=== PATIENT | male | born 1985 | race American Indian/Alaskan Native ===

== ENCOUNTER 2019-02-28 22:54 | Emergency (ER) | payer SELFPAY ==
[2019-02-28 23:11] VITALS: BP 144/86
[2019-03-01] MEDS ORDERED: diphenhydrAMINE 25 MG CAP PO ONE (00:54)
--- NOTE | 2019-03-01 01:12 | Event Note ---
Date of service: 03/01/19 Face to Face: This is a 34-year-old gentleman, HIV positive, on antiviral therapy, prezista and genvoya, presenting with burning pruritic rash, on the right posterior tricep, vesicular in nature, also in right axilla, punctate lesion on right abdominal wall, likely zoster. Patient denies systemic symptoms. Patient denies additional complaints. Physician captain's assistant to evaluate patient's medications, and recommend either acyclovir or valacyclovir, depending on medication interactions. Counseled patient on need to follow-up, this condition does not appear to be dangerous or life-threatening. Would discontinue triamcinolone at this time. We would do warm compresses as needed for pain. Vital Signs 02/28/19 23:04 Temperature 97.7 F Pulse Rate 84 Respiratory 18 Rate Blood Pressure 144/86 O2 Sat by Pulse 100 Oximetry
--- NOTE | 2019-03-01 01:20 | Emergency Department Report ---
- General Chief complaint: Skin Rash Stated complaint: BODY RASH Time Seen by Provider: 03/01/19 00:35 Source: patient Mode of arrival: Ambulatory Limitations: No Limitations - History of Present Illness Initial comments: Patient is a 34-year-old male with a past medical history of HIV and hepatitis C on antivirals who presents the emergency room with complaints of a rash that be dayna 2 days ago. He describes the rash as itching and burning. Patient denies any new medications. He denies any new soaps, detergents, lotions, anything new that he can think of. He states that he went to the [facility] yesterday and received triamcinolone ointment but it has not been relieving his symptoms. pt denies any other symptoms. he denies nausea, vomiting, fever, chills, ANTHONY, or any other symptoms. pt takes bactrim, prezista, and genvoya. - Related Data Previous Rx's Medication Instructions Recorded Last Taken Type Acyclovir [Zovirax Tab] 800 mg PO 5XD 7 Days #35 tablet 03/01/19 Unknown Rx Allergies Allergy/AdvReac Type Severity Reaction Status Date / Time No Known Allergies Allergy Verified 03/01/19 01:25 Abscess Boil HPI - HPI Chief Complaint: Skin Rash Stated Complaint: BODY RASH Time Seen by Provider: 03/01/19 00:35 Home Medications: Previous Rx's Medication Instructions Recorded Last Taken Type Acyclovir [Zovirax Tab] 800 mg PO 5XD 7 Days #35 tablet 03/01/19 Unknown Rx Allergies/Adverse Reactions: Allergies Allergy/AdvReac Type Severity Reaction Status Date / Time No Known Allergies Allergy Verified 03/01/19 01:25 ED Review of Systems ROS: Stated complaint: BODY RASH Other details as noted in HPI Comment: All other systems reviewed and negative ED Past Medical Hx - Past Medical History Previous Medical History?: Yes Hx Hypertension: Yes Hx HIV: Yes Additional medical history: Hep B - Surgical History Past Surgical History?: No - Social History Smoking Status: Current Every Day Smoker Substance Use Type: Alcohol, Marijuana - Medications Home Medications: Home Medications Medication Instructions Recorded Confirmed Last Taken Type Acyclovir [Zovirax Tab] 800 mg PO 5XD 7 Days #35 tablet 03/01/19 Unknown Rx ED Physical Exam - General Limitations: No Limitations General appearance: alert, in no apparent distress - Head Head exam: Present: atraumatic, normocephalic - Eye Eye exam: Present: normal appearance - ENT ENT exam: Present: mucous membranes moist - Neurological Exam Neurological exam: Present: alert, oriented X3 - Psychiatric Psychiatric exam: Present: normal affect, normal mood - Skin Skin exam: Present: warm, dry, other (grouped vesicles in a dermatomal distrubution on the left upper arm, small punctuate lesion to the left upper back) ED Course Vital Signs 02/28/19 23:04 Temperature 97.7 F Pulse Rate 84 Respiratory 18 Rate Blood Pressure 144/86 O2 Sat by Pulse 100 Oximetry ED Medical Decision Making - Medical Decision Making Patient is a 34-year-old male with a past medical history of HIV and hepatitis C on antivirals who presents the emergency room with complaints of a rash that began 2 days ago. He describes the rash as itching and burning. Patient denies any new medications. He denies any new soaps, detergents, lotions, anything new that he can think of. He states that [facility] and received triamcinolone ointment but it has not been relieving his symptoms. pt denies any other symptoms. he denies nausea, vomiting, fever, chills, ANTHONY, or any other symptoms. pt takes bactrim, prezista, and genvoya. VSS. on exam: grouped vesicles in a dermatomal distrubution on the left upper arm, small punctuate lesion to the left upper back. pt examined by Dr. joshua, ER attending who states rash appears consistent with herpes zoster. pt given prescription for acyclovir. advised pt to please take medication as prescribed. please follow-up in 3 days with a health department for testing of your blood due to starting this new medication and for reexamination. please drink 6-8 glasses of water a day. Please stop using triamcinolone cream. Use Benadryl for itching. Return to the emergency room for any new or worsening symptoms. discussed with pt that his genvoya and acyclovir could potentially cause kidney issues which is why it is important to increase water intake and to see his primary care provider for kidney function testing, pt verbalized understanding. Critical care attestation.: If time is entered above; I have spent that time in minutes in the direct care of this critically ill patient, excluding procedure time. ED Disposition Clinical Impression: Herpes zoster Qualifiers: Herpes zoster complications: unspecified herpes zoster complication Qualified Code(s): B02.8 - Zoster with other complications Disposition: TO HOME OR SELFCARE Is pt being admited?: No Does the pt Need Aspirin: No Condition: Stable Instructions: Herpes Zoster (ED) Additional Instructions: Please take medication as prescribed. please follow-up in 3 days with a health department for testing of your blood due to starting this new medication and for reexamination. please drink 6-8 glasses of water a day. Please stop using triamcinolone cream. Use Benadryl for itching. Return to the emergency room for any new or worsening symptoms. Prescriptions: Acyclovir [Zovirax Tab] 800 mg PO 5XD 7 Days #35 tablet Referrals: [facility] [Outside] - 3-5 Days HARDEEP COLON MD [Staff Physician] - 3-5 Days Time of Disposition: 01:38 Print Language: ESTONIAN
== END 2019-03-01 02:11 | disposition home or self-care (01) ==
LOC: ED 22:54
DX: B02.8 Zoster with other complications (principal); I10 Essential (primary) hypertension; F17.200 Nicotine dependence, unspecified, uncomplicated; F12.10 Cannabis abuse, uncomplicated
CPT/HCPCS: 99282

== ENCOUNTER 2019-06-13 07:46 | Emergency (ER) | payer SELFPAY ==
[2019-06-13 08:15] VITALS: BP 140/89
[2019-06-13] MEDS ORDERED: ONDANSETRON 4 MG/2 ML INJ IV ONE (09:08)
[2019-06-13] MEDS ORDERED: SODIUM CHLORIDE 0.9% 1000 ML 1,000 ML IV ONE (09:08)
--- NOTE | 2019-06-13 09:11 | Emergency Department Report ---
ED General Adult HPI - General Chief complaint: Upper Respiratory Infection Stated complaint: WEAK/VOMITING Source: patient Mode of arrival: Ambulatory Limitations: No Limitations - History of Present Illness Initial comments: 34 yo male c/o of fever, chills, nausea vomiting x 5 abdominal cramping and cough. Symptoms started yesterday. PMH of HIV and HEP.B. PCP Dr. Chavez. He rep orts compliance with HIV meds and states his numbers are undetectable. Denies chest pain and sob,no diarrhea. Last BM yesterday -: Sudden Location: abdomen Quality: other (cramping ) Consistency: intermittent Worsens with: none Associated Symptoms: denies: chest pain, cough, diaphoresis Treatments Prior to Arrival: none - Related Data Previous Rx's Medication Instructions Recorded Last Taken Type Acyclovir [Zovirax Tab] 800 mg PO 5XD 7 Days #35 tablet 03/01/19 Unknown Rx Ondansetron [Zofran Odt] 4 mg PO Q8HR PRN #12 tab.rapdis 06/13/19 Unknown Rx bisacodyL [Dulcolax suppos] 10 mg [place] ONCE #2 supp.rect 06/13/19 Unknown Rx traMADoL [Ultram 50 MG tab] 50 mg PO Q6HR PRN 4 Days #16 tablet 06/13/19 Unknown Rx Allergies Allergy/AdvReac Type Severity Reaction Status Date / Time No Known Allergies Allergy Verified 06/13/19 07:58 ED Review of Systems ROS: Stated complaint: WEAK/VOMITING Other details as noted in HPI Comment: All other systems reviewed and negative Constitutional: chills, malaise Respiratory: cough Gastrointestinal: nausea, vomiting, other (abdominal cramping) Genitourinary: denies: dysuria, frequency, hematuria, testicular pain, testicular mass Neurological: denies: headache Psychiatric: denies: anxiety ED Past Medical Hx - Past Medical History Previous Medical History?: Yes Hx Hypertension: Yes Hx HIV: Yes Additional medical history: Hep B - Surgical History Past Surgical History?: No - Social History Smoking Status: Never Smoker Substance Use Type: None - Medications Home Medications: Home Medications Medication Instructions Recorded Confirmed Last Taken Type Acyclovir [Zovirax Tab] 800 mg PO 5XD 7 Days #35 tablet 03/01/19 Unknown Rx Ondansetron [Zofran Odt] 4 mg PO Q8HR PRN #12 tab.rapdis 06/13/19 Unknown Rx bisacodyL [Dulcolax suppos] 10 mg [place] ONCE #2 supp.rect 06/13/19 Unknown Rx traMADoL [Ultram 50 MG tab] 50 mg PO Q6HR PRN 4 Days #16 tablet 06/13/19 Unknown Rx ED Physical Exam - General Limitations: No Limitations General appearance: alert, in no apparent distress - Eye Eye exam: Present: normal appearance. Absent: scleral icterus, conjunctival injection - ENT ENT exam: Present: normal exam - Neck Neck exam: Present: normal inspection - Respiratory Respiratory exam: Present: normal lung sounds bilaterally. Absent: respiratory distress, wheezes, rales, rhonchi - Cardiovascular Cardiovascular Exam: Present: regular rate, normal rhythm, normal heart sounds - GI/Abdominal GI/Abdominal exam: Present: soft, normal bowel sounds. Absent: distended, tenderness, guarding - Extremities Exam Extremities exam: Present: normal inspection, full ROM - Back Exam Back exam: Present: normal inspection - Neurological Exam Neurological exam: Present: alert, oriented X3 - Psychiatric Psychiatric exam: Present: normal affect - Skin Skin exam: Present: warm, dry, intact ED Course Vital Signs 06/13/19 08:13 Temperature 99.8 F H Pulse Rate 87 Respiratory 16 Rate Blood Pressure 140/89 O2 Sat by Pulse 100 Oximetry - Reevaluation(s) Reevaluation #1: 06/13/19 10:35 At bedside to discuss findings with patient. CXR wnl labs no acute findings. Pt now c/o low back pain radiating to testicles. Denies any penile and testicular pain, and discharge. No further vomiting while in ER. Send UA and Toradol 30 mg IV. No cva tenderness, paraspinal pain. Denies falls or injury to his back. ED Medical Decision Making - Lab Data Result diagrams: 06/13/19 09:34 06/13/19 09:34 - Radiology Data Radiology results: report reviewed Chest X-ray FINDINGS: SUPPORT DEVICES: None. HEART / MEDIASTINUM: No significant abnormality. LUNGS / PLEURA: No significant pulmonary or pleural abnormality. No pneumothorax. ADDITIONAL FINDINGS: No significant additional findings. IMPRESSION: 1. No acute findings. ct abd IMPRESSION: 1. Tiny punctate 1 mm nonobstructing right intrarenal stone. No ureteral stone or hydronephrosis. 2. Mild constipation Critical Care Time: No Critical care attestation.: If time is entered above; I have spent that time in minutes in the direct care of this critically ill patient, excluding procedure time. ED Disposition Clinical Impression: Kidney stone Vomiting Qualifiers: Vomiting type: unspecified Vomiting Intractability: non-intractable Nausea presence: with nausea Qualified Code(s): R11.2 - Nausea with vomiting, unspecified Constipation Qualifiers: Constipation type: unspecified constipation type Qualified Code(s): K59.00 - Constipation, unspecified Disposition: TO HOME OR SELFCARE Is pt being admited?: No Does the pt Need Aspirin: No Condition: Stable Instructions: Gastroenteritis (ED), Kidney Stones (ED), Constipation (ED) Additional Instructions: Tiny punctate 1 mm nonobstructing right intrarenal stone. No ureteral stone or hydronephrosis. 2. Mild constipation Continue to take all your home medications as instructed Drink plenty fluids Eat fresh fruits and vegetables Follow up with your Doctor in 2-3 days or sooner for any worsening symptoms. Prescriptions: bisacodyL [Dulcolax suppos] 10 mg WA ONCE #2 supp.rect traMADoL [Ultram 50 MG tab] 50 mg PO Q6HR PRN 4 Days #16 tablet PRN Reason: Pain Ondansetron [Zofran Odt] 4 mg PO Q8HR PRN #12 tab.rapdis PRN Reason: Nausea And Vomiting Referrals: SHEILA CHAVEZ MD [Primary Care Provider] - 3-5 Days Time of Disposition: 12:41
--- NOTE | 2019-06-13 09:28 | XRay Report ---
CHEST 2 VIEWS INDICATION / CLINICAL INFORMATION: cough. COMPARISON: None available. FINDINGS: SUPPORT DEVICES: None. HEART / MEDIASTINUM: No significant abnormality. LUNGS / PLEURA: No significant pulmonary or pleural abnormality. No pneumothorax. ADDITIONAL FINDINGS: No significant additional findings. IMPRESSION: 1. No acute findings. Signer Name: Farhad Ramirez MD Signed: 06/13/2019 9:23 AM Workstation Name: [email or web address]
[2019-06-13 09:54] LABS: Hematocrit 40.9 % (35.5-45.6); Hemoglobin 13.3 gm/dl (11.8-15.2); Mean Corpuscular HGB Conc 33 % (32-34); Mean Corpuscular Volume 85 fl (84-94); Platelet Count 150 K/mm3 (140-440); Red Blood Count 4.81 M/mm3 (3.65-5.03); Red Cell Distribution Width 13.9 % (13.2-15.2)
[2019-06-13 10:12] LABS: Alanine Aminotransferase 9 units/L (7-56); Albumin 4.3 g/dL (3.9-5); BUN/Creatinine Ratio 8; Blood Urea Nitrogen 9 mg/dL (9-20); Calcium 9.7 mg/dL (8.4-10.2); Hemolysis Index 11
[2019-06-13] MEDS ORDERED: KETOROLAC 30 MG/1 ML INJ IV ONE (10:33)
[2019-06-13 10:58] LABS: Bilirubin,Urine NEG (Negative); Blood,Urine LG (Negative); Color,Urine Yellow (Yellow); Mucus,Urine FEW /HPF; Protein,Urine <15 mg/dL mg/dL (Negative); Urobilinogen,Urine < 2.0 mg/dL (<2.0)
--- NOTE | 2019-06-13 12:16 | Cat Scan Report ---
CT ABDOMEN AND PELVIS WITHOUT CONTRAST INDICATION: Flank pain for 2 days.. TECHNIQUE: Axial CT images were obtained through the abdomen and pelvis without IV contrast. All CT scans at [facility] location are performed using CT dose reduction for ALARA by means of automated exposure control. COMPARISON: None available. FINDINGS: LOWER CHEST: No significant abnormality. LIVER: No significant abnormality. GALLBLADDER: No significant abnormality. BILE DUCTS: No significant abnormality. PANCREAS: No significant abnormality. SPLEEN: No significant abnormality. ADRENALS: No significant abnormality. RIGHT KIDNEY and URETER: Tiny punctate 1 mm nonobstructing right intrarenal stone. No ureteral stone or hydronephrosis LEFT KIDNEY and URETER: No significant abnormality. STOMACH and SMALL BOWEL: No significant abnormality. COLON: No significant abnormality. Mild constipation APPENDIX: No significant abnormality. PERITONEUM: No free fluid. No free air. No fluid collection. LYMPH NODES: No significant adenopathy. AORTA and ARTERIES: No significant abnormality. IVC and VEINS: No significant abnormality. URINARY BLADDER: No significant abnormality. REPRODUCTIVE ORGANS: No significant abnormality. ADDITIONAL FINDINGS: None. SKELETAL SYSTEM: No significant abnormality. IMPRESSION: 1. Tiny punctate 1 mm nonobstructing right intrarenal stone. No ureteral stone or hydronephrosis. 2. Mild constipation Signer Name: Farhad Ramirez MD Signed: 06/13/2019 12:12 PM Workstation Name: [email or web address]
== END 2019-06-13 12:50 | disposition home or self-care (01) ==
LOC: ED 07:46
DX: N20.0 Calculus of kidney (principal); K59.00 Constipation, unspecified; R05 Cough; I10 Essential (primary) hypertension; Z79.899 Other long term (current) drug therapy
CPT/HCPCS: 36415; 71046; 74176; 80053; 81001; 85027; 96361; 96374; 96375; 99284; J1885; J2405; J7030

== ENCOUNTER 2021-12-04 10:17 | Emergency (ER) | payer BC ==
[2021-12-04] MEDS ORDERED: SODIUM CHLORIDE 0.9% 1000 ML 1,000 ML IV ONE (10:29)
[2021-12-04] MEDS ORDERED: DICYCLOMINE 20 MG/2 ML INJ IM ONE (10:30)
[2021-12-04] MEDS ORDERED: ONDANSETRON 4 MG/2 ML INJ IV ONE (10:30)
[2021-12-04] MEDS ORDERED: FAMOTIDINE 20 MG/2 ML INJ IV ONE (10:30)
--- NOTE | 2021-12-04 10:33 | Emergency Department Report ---
ED N/V/D HPI - General Chief complaint: Nausea/Vomiting/Diarrhea Stated complaint: ate raw chicken, stomach hurting Time Seen by Provider: 12/04/21 10:25 Source: patient Mode of arrival: Ambulatory Limitations: No Limitations - History of Present Illness Initial comments: 36-year-old black male with a past medical history of HIV presents to the emergency department for evaluation of nausea, vomiting, diarrhea, and abdominal pain and cramping. He states that this morning, he ate raw chicken that he received from a restaurant and symptoms started shortly after that. He denies fever, dysuria, and penile discharge. MD complaint: nausea, vomiting, diarrhea, abdominal pain -: Sudden, hour(s) Description of Diarrhea: water Associated Abdominal Pain: Yes Location: epigastric Radiation: none Severity: severe Pain Scale: 10 Quality: cramping Consistency: intermittent Context: possible food poisoning Associated Symptoms: nausea/vomiting. denies: myalgias, chest pain, cough, diaphoresis, fever/chills, headaches, loss of appetite, malaise, rash, dysuria, shortness of breath, syncope, weakness - Related Data Previous Rx's Medication Instructions Recorded Last Taken Type Acyclovir [Zovirax Tab] 800 mg PO 5XD 7 Days #35 tablet 03/01/19 Unknown Rx Ondansetron [Zofran Odt] 4 mg PO Q8HR PRN #12 tab.rapdis 06/13/19 Unknown Rx bisacodyL [Dulcolax suppos] 10 mg [place] ONCE #2 supp.rect 06/13/19 Unknown Rx traMADoL [Ultram 50 MG tab] 50 mg PO Q6HR PRN 4 Days #16 tablet 06/13/19 Unknown Rx Dicyclomine [Bentyl] 20 mg PO QID PRN #30 tablet 12/04/21 Unknown Rx Ondansetron [Zofran Odt] 4 mg PO Q8HR PRN #12 tab.rapdis 12/04/21 Unknown Rx Allergies Allergy/AdvReac Type Severity Reaction Status Date / Time No Known Allergies Allergy Verified 06/13/19 07:58 ED Review of Systems ROS: Stated complaint: ate raw chicken, stomach hurting Other details as noted in HPI Comment: All other systems reviewed and negative Constitutional: denies: chills, fever Eyes: denies: vision change ENT: denies: congestion Respiratory: denies: cough, shortness of breath Cardiovascular: denies: chest pain, palpitations, dyspnea on exertion Gastrointestinal: abdominal pain, nausea, vomiting, diarrhea. denies: hematemesis, melena, hematochezia Genitourinary: denies: urgency, dysuria, frequency, hematuria, discharge Musculoskeletal: denies: back pain Skin: denies: rash, lesions Neurological: denies: headache, weakness ED Past Medical Hx - Past Medical History Previous Medical History?: Yes Hx Hypertension: Yes Hx HIV: Yes Additional medical history: Hep B - Surgical History Past Surgical History?: No - Social History Smoking Status: Never Smoker Substance Use Type: None - Medications Home Medications: Home Medications Medication Instructions Recorded Confirmed Last Taken Type Acyclovir [Zovirax Tab] 800 mg PO 5XD 7 Days #35 tablet 03/01/19 Unknown Rx Ondansetron [Zofran Odt] 4 mg PO Q8HR PRN #12 tab.rapdis 06/13/19 Unknown Rx bisacodyL [Dulcolax suppos] 10 mg [place] ONCE #2 supp.rect 06/13/19 Unknown Rx traMADoL [Ultram 50 MG tab] 50 mg PO Q6HR PRN 4 Days #16 tablet 06/13/19 Unknown Rx Dicyclomine [Bentyl] 20 mg PO QID PRN #30 tablet 12/04/21 Unknown Rx Ondansetron [Zofran Odt] 4 mg PO Q8HR PRN #12 tab.rapdis 12/04/21 Unknown Rx ED Physical Exam - General Limitations: No Limitations General appearance: alert, in no apparent distress - Head Head exam: Present: atraumatic, normocephalic - Eye Eye exam: Present: normal appearance. Absent: conjunctival injection, periorbital swelling, periorbital tenderness - ENT ENT exam: Present: normal exam, normal orophraynx - Neck Neck exam: Present: normal inspection, full ROM. Absent: tenderness, lymphadenopathy - Respiratory Respiratory exam: Present: normal lung sounds bilaterally. Absent: respiratory distress, wheezes, rales, rhonchi, stridor, chest wall tenderness - Cardiovascular Cardiovascular Exam: Present: regular rate, normal heart sounds - GI/Abdominal GI/Abdominal exam: Present: soft, tenderness (Epigastric area), normal bowel sounds. Absent: distended, guarding, rebound, rigid - Extremities Exam Extremities exam: Present: normal inspection, normal capillary refill. Absent: full ROM, tenderness, pedal edema, joint swelling, calf tenderness - Back Exam Back exam: Present: normal inspection. Absent: CVA tenderness (R), CVA tenderness (L), muscle spasm, vertebral tenderness - Neurological Exam Neurological exam: Present: alert, oriented X3, CN II-XII intact, normal gait, reflexes normal. Absent: motor sensory deficit - Psychiatric Psychiatric exam: Present: normal affect, normal mood - Skin Skin exam: Present: warm, dry, intact, normal color ED Course Vital Signs 12/04/21 10:21 Temperature 98.4 F Pulse Rate 89 Respiratory 20 Rate Blood Pressure 144/95 [Right] O2 Sat by Pulse 100 Oximetry - Reevaluation(s) Reevaluation #1: 12/04/21 11:46 Symptoms mostly resolved after medication and patient states that he feels much better. ED Medical Decision Making - Medical Decision Making 36-year-old black male with a past medical history of HIV presents to the emergency department for evaluation of nausea, vomiting, diarrhea, and abdominal pain and cramping. He states that this morning, he ate raw chicken that he received from a restaurant and symptoms started shortly after that. He denies fever, dysuria, and penile discharge. Physical exam and symptoms most consistent with gastroenteritis secondary to questionable food intake. Symptoms mostly resolved after medications, patient felt much better. Patient will be discharged home with Zofran and Bentyl to use as needed. He is advised to take medications as prescribed and follow-up with his primary care provider if no improvement or worsening symptoms. He is advised to return to the emergency department for any concerning symptoms. He verbalizes understanding of and agreement with plan of care. Critical care attestation.: If time is entered above; I have spent that time in minutes in the direct care of this critically ill patient, excluding procedure time. ED Disposition Clinical Impression: Gastroenteritis Disposition: 01 HOME / SELF CARE / HOMELESS Is pt being admited?: No Does the pt Need Aspirin: No Condition: Stable Instructions: Viral Gastroenteritis, Adult, [id number], Food Choices to Help Relieve Diarrhea, Adult Additional Instructions: Take medications as prescribed. Increase intake of noncaffeinated fluids. Follow-up with primary care provider if worsening symptoms. Return to the emergency department as needed. Prescriptions: Dicyclomine [Bentyl] 20 mg PO QID PRN #30 tablet PRN Reason: Pain, Moderate (4-6) Ondansetron [Zofran Odt] 4 mg PO Q8HR PRN #12 tab.rapdis PRN Reason: Nausea And Vomiting Referrals: ADDY PETERSON MD [Staff Physician] - 3-5 Days Time of Disposition: 11:49
[2021-12-04 12:06] VITALS: BP 134/86
== END 2021-12-04 12:26 | disposition home or self-care (01) ==
LOC: ED 10:17
DX: K52.9 Noninfective gastroenteritis and colitis, unspecified (principal); I10 Essential (primary) hypertension; Z21 Asymptomatic human immunodeficiency virus [HIV] infection status; B19.10 Unspecified viral hepatitis B without hepatic coma
CPT/HCPCS: 96361; 96372; 96374; 96375; 99282; J0500; J2405; J3490; J7030

== ENCOUNTER 2021-12-21 10:01 | Emergency (ER) | payer BC ==
[2021-12-21 10:27] VITALS: BP 142/95
== END 2021-12-21 12:00 | disposition left against medical advice (07) ==
LOC: ED 10:01
DX: K92.1 Melena (principal); Z53.21 Procedure and treatment not carried out due to patient leaving prior to being seen by health care provider